=== PATIENT | female | born 1985 | race Caucasian/White ===

== ENCOUNTER → 2020-05-16 | Outpatient (CLI) | payer OTHER ==
--- NOTE | 2020-05-21 08:53 | MR ---
EXAMINATION TYPE: MR liver wo/w con DATE OF EXAM: 05/16/2020 COMPARISON: Outside CT April 23, 2020 HISTORY: Liver lesion, Stomach pain CONTRAST: Standard multiplanar, multisequence MRI departmental protocol utilizing 11 mL intravenous Gadavist ga dolinium contrast. Imaging is performed of the abdomen focusing on the liver. FINDINGS: Liver: Liver size stable and upper limits of normal with prominent right hepatic lobe redemonstrated. No concerning solid or cystic mass clearly identified. Dynamic postcontrast imaging suboptimal as no true dedicated hepatic arterial phase identified. Main portal vein is patent and nondilated. Branchi ng portal veins are patent. Draining hepatic veins into IVC noted. Area of concern 1.5 cm hyperdensit y on arterial phase images posterior right hepatic lobe towards the periphery on CT not clearly seen on delayed phased images and not clearly identified on MRI are consistent with a transient hepatic at tenuation difference. Other: Lung bases are clear. The spleen, pancreas, both adrenal glands are within normal limits. Gall bladder noted surgically absent. No concerning renal mass or hydronephrosis seen bilaterally. No jack l dilatation. Osseous structures are intact. IMPRESSION: As above. No worrisome intrahepatic mass on MRI.
== END | disposition home or self-care (01) ==
LOC: RADMRIMAIN 15:19
PROVIDERS: ATTEND Family Medicine
DX: K76.9 Liver disease, unspecified (principal); Z90.49 Acquired absence of other specified parts of digestive tract
CPT/HCPCS: 74183; A9585

== ENCOUNTER → 2020-06-20 | Outpatient (CLI) | payer OTHER ==
[2020-06-20 20:51] LABS: Gliadin AB IgA, Deaminated NEGATIVE (NEGATIVE); Gliadin AB IgA, Unit 1.4 U/mL; Gliadin AB IgG, Deaminated NEGATIVE (NEGATIVE)
== END | disposition home or self-care (01) ==
LOC: LABWHC1 10:50
PROVIDERS: ATTEND Nurse Practitioner
DX: R19.4 Change in bowel habit (principal)
CPT/HCPCS: 36415; 83516

== ENCOUNTER → 2021-07-10 | Outpatient (CLI) | payer OTHER ==
--- NOTE | 2021-07-10 14:56 | P.HPBAR ---
Bariatric H&P - History & Physicial H&P Date: 07/10/21 History & Physicial: Visit/CC: Patient initial contact: Initial weight: Initial weight in pounds: Height: Initial BMI: Last weight: Current weight: Current weight in pounds: Current BMI: [place] body weight (based on NIH guidelines): Excess body weight loss: The patient is a 35 year-old F who presents for Bariatric Assessment. DATE OF SERVICE: 07/10/2021 REASON FOR CONSULTATION: Initial bariatric evaluation. HISTORY OF PRESENT ILLNESS: Oksana Rae is a 35-year-old female who comes with lifelong morbid obesity. She presents for the first time in consultation. She was 300 pounds and she lost 50 pounds on her own. She then had health issues with her thyroid and blood pressure medications. She is looking into weight loss. She needs 1 year medical supervised weight loss. She has regained her weight from her 50 pound weight loss. She is looking into the sleeve gastrectomy and gastric bypass. She wants drastic weight loss. She reports support as her is a inside sales trainer. At height of 5 feet 3.75 inches, her ideal body weight is 140 pounds. Her highest weight is 300 pounds, body mass index 52.0. She comes in 265 pounds. Her body mass index is 46.0. She is 125 pounds overweight. PAST MEDICAL HISTORY: 1. Morbid obesity due to excess calories 2. Body mass index of 52.0, initial 3. Hypertensive heart disease 4. Hyperlipidemia 5. Osteoarthritis 6. Gastroesophageal reflux disease 7. Depressive disorder 8. Kidney stones. PAST SURGICAL HISTORY: 1. Breast reduction 2. Cholecystectomy 3. Hysterectomy 4. Lithotripsy HOME MEDICATIONS: Home Medications Medication Instructions Recorded Confirmed Atorvastatin [Lipitor] 20 mg PO DAILY 08/30/21 09/26/21 DULoxetine HCL [Cymbalta] 30 mg PO DAILY 08/30/21 09/26/21 Gabapentin [Neurontin] 300 mg PO QID 08/30/21 09/26/21 Hydrochlorothiazide 12.5 mg PO DAILY 08/30/21 09/26/21 [hydroCHLOROthiazide] Loratadine [Claritin] 10 mg PO DAILY 08/30/21 09/26/21 Meloxicam [Mobic] 15 mg PO DAILY 08/30/21 09/26/21 Nortriptyline [Pamelor] 10 mg PO DAILY 08/30/21 09/26/21 Omeprazole [PriLOSEC] 20 mg PO DAILY 08/30/21 09/26/21 amLODIPine [Norvasc] 10 mg PO DAILY 08/30/21 09/26/21 Fluticasone Nasal [place] [Flonase 2 spray EA NOSTRIL DAILY PRN 09/27/21 09/27/21 Nasal [place]] ALLERGIES: Allergies Allergy/AdvReac Type Severity Reaction Status Date / Time Penicillins Allergy Anaphylaxis Verified 09/05/21 12:28 Sulfa (Sulfonamide Allergy Anaphylaxis Verified 09/05/21 12:28 Antibiotics) SOCIAL HISTORY: Denies tobacco use. FAMILY HISTORY: No family history of ulcerative colitis disease or Crohn's disease. Family history of morbid obesity. No lupus in the family. No reports of stomach or esophageal cancer. She reports her grandmother had obesity. REVIEW OF ORGAN SYSTEMS: CONSTITUTIONAL: HEENT: Denies any active troubles with vision or hearing. ENDOCRINE: Denies diabetes. Had thyroid disorder. CARDIOVASCULAR: Denies past reports of palpitations or heart attacks or chest pain. Has hyperlipidemia. RESPIRATORY: No current pneumonia. No shortness of breath. GASTROINTESTINAL: Denies any bright red blood per rectum. No diarrhea. No constipation. Has gastroesophageal reflux disease. GENITOURINARY: Denies bladder urgency. No recent blood in urine MUSCULOSKELETAL: Has lower back pain and joint pain. NEURO: Has neuropathy. No seizure disorders. PSYCH: Has depression. No suicidal ideation. Has anxiety. RHEUMATOLOGIC: No lupus. No rheumatoid arthritis. HEMATOLOGIC: Denies any abnormal bleeding or bruising. Denies past history of DVTs. SKIN: No rash. No skin cancer. PHYSICAL EXAM: VITAL SIGNS: Height 5 foot 3.75 inches, weight 265 pounds. BMI 46.0 Vital Signs Temp 99 F 07/10/21 16:24 Pulse 97 07/10/21 16:24 Resp 16 07/10/21 16:24 BP 124/72 07/10/21 16:24 Pulse Ox GENERAL: Well-developed in no acute distress. HEENT: No scleral icterus. Extraocular movements grossly intact. Hears conversational speech. No nasal drainage. NECK: Supple without lymphadenopathy. CHEST: Nonlabored respirations with equal bilateral excursions. CARDIOVASCULAR: Regular rate and regular rhythm. Distal 2+ pulses. ABDOMEN: Obese, soft, nontender, nondistended. MUSCULOSKELETAL: No clubbing, cyanosis. NEURO: No focal or lateralizing signs. Cranial nerves 2 through 12 grossly within normal limits. PSYCH: Appropriate affect. Alert and oriented to person, place and time. SKIN: Good skin turgor. Well perfused. ASSESSMENT: 1. Morbid obesity due to excess calories 2. Body mass index of 52.0, initial 3. Hypertensive heart disease 4. Hyperlipidemia 5. Osteoarthritis 6. Gastroesophageal reflux disease 7. Depressive disorder 8. Kidney stones. PLAN: 1. Surgical options including a band, gastric bypass, sleeve gastrectomy were described in detail. Alternatives such as gastric balloon including duodenal switch were described. 2. The [place] bariatric surgical collaborative data and outcomes calculator deferred. 3. Recommend a bariatric metabolic panel to evaluate for micro- including macronutrient deficiencies. 4. For history of daytime somnolence, recommend evaluation and treatment for sleep apnea. 5. Dietary surveillance and counseling was reviewed. Increased protein intake over 65 grams daily advised. 6. Will need cardiac risk assessment. 7. Recommend medical risk assessment. 8. Psych assessment per insurance guidelines. 9. Recommend upper endoscopy. 10. Recommend 12-lead EKG. 11. Recommend urine nicotine testing pre-op 12. Recommend urine drug screen Thank you for this consultation. Bariatric Checklist Checklist: Plan: Checklist: EGD: 1. Hiatal hernia: 2. H. Pylori: HgbA1c: Vitamin D: Smoking: Primary care physician referral: Psychiatry clearance: Cardiology clearance: Sleep study: Diet journal: VTE risk score: VTE risk level: Rehab needs at discharge:
[2021-07-10 16:29] VITALS: BP 124/72; PULSE 97; RESP 16; TEMP 99; BMI 46.0
== END ==
LOC: BARWHC3 13:27
PROVIDERS: ATTEND Surgery Plastic and Reconstructive Surgery
DX: E66.01 Morbid (severe) obesity due to excess calories (principal); I11.9 Hypertensive heart disease without heart failure; E78.5 Hyperlipidemia, unspecified; M19.90 Unspecified osteoarthritis, unspecified site; K21.9 Gastro-esophageal reflux disease without esophagitis; F32.A Depression, unspecified; N20.0 Calculus of kidney; Z88.0 Allergy status to penicillin; Z88.2 Allergy status to sulfonamides; Z68.42 Body mass index [BMI] 45.0-49.9, adult
CPT/HCPCS: 99203

== ENCOUNTER → 2021-07-10 | Outpatient (CLI) | payer OTHER ==
[2021-07-10 16:12] LABS: INR 0.9 (<1.2); Partial Thromboplastin Time 21.5 sec (22.0-30.0); Prothrombin Time 9.7 sec (9.0-12.0)
[2021-07-10 19:17] LABS: HCT 39.2 % (37.2-46.3); HGB 12.6 g/dL (12.0-15.0); MCH 28.7 pg (27.0-32.0); MCHC 32.1 g/dL (32.0-37.0); MCV 89.3 fL (80.0-97.0); Mean Platelet Volume 9.3 fL (9.5-12.2); NRBC Per 100 WBC 0 /100 WBCS (0.0-0.0); Platelet Count 389 X 10*3/uL (140-440); RBC 4.39 X 10*6/uL (4.10-5.20); RDW 13.8 % (11.5-14.5); WBC 9.96 X 10*3/uL (4.50-10.00)
[2021-07-10 19:57] LABS: Chol/HDL Ratio 4.31 Ratio; LDL Cholesterol,Calculated 93.7 mg/dL (0.0-131.0); Prealbumin 33.6 mg/dL (18.0-42.0)
[2021-07-10 21:32] LABS: % Iron Saturation 9.96 (12.00-45.00); ALT 19 U/L (8-44); AST 12 U/L (13-35); African American GFR (CKD) 99.1 (60.0-200.0); Albumin 4.3 g/dL (3.8-4.9); Albumin/Globulin Ratio 1.67 (1.60-3.17); Alkaline Phosphatase 50 U/L (41-126); BUN/Creat Ratio 17.32 Ratio (12.00-20.00); Blood Urea Nitrogen 15.1 mg/dL (9.0-27.0); Calcium 9.4 mg/dL (8.7-10.3); Carbon Dioxide 18.5 mmol/L (20.0-27.5); Chloride 103 mmol/L (96-109); Ferritin 50.2 ng/mL (10.0-291.0); Globulin 2.6 g/dL (1.6-3.3); Glucose 100 mg/dL (70-110); Iron 41 ug/dL (50-170); Non-African American GFR(CKD) 85.5 (60.0-200.0); Phosphorus 4.2 mg/dL (2.4-5.1); Sodium 139 mmol/L (135-145); Total Iron Binding Capacity 409 ug/dL (228-460); Total Protein 6.9 g/dL (6.2-8.2)
[2021-07-11 13:05] LABS: Zinc, Serum 59 ug/dL (60-130)
[2021-07-12 09:12] LABS: Vitamin A 88 ug/dL (38-106)
== END | disposition home or self-care (01) ==
LOC: LABWHC1 15:08
PROVIDERS: ATTEND Surgery Plastic and Reconstructive Surgery
DX: E55.9 Vitamin D deficiency, unspecified (principal); E66.01 Morbid (severe) obesity due to excess calories; D50.8 Other iron deficiency anemias; D50.9 Iron deficiency anemia, unspecified; K50.90 Crohn's disease, unspecified, without complications; K91.2 Postsurgical malabsorption, not elsewhere classified; K74.1 Hepatic sclerosis; N19 Unspecified kidney failure; Z71.51 Drug abuse counseling and surveillance of drug abuser
CPT/HCPCS: 84255; 84134; 84425; 80061; 80053; 82607; 82728; 82525; 82746; 83540; 83550; 83735; 84100; 84443; 84590; 84630; 85027; 85610; 85730; 82306; 83970; 83036; 80307; 93005; 36415; G0480; G0482; 80323

== ENCOUNTER → 2021-09-05 | Outpatient (CLI) | payer OTHER ==
[~2021-09-05] MED LIST: CYANOCOBALAMIN 1,000 MCG/ML 1 ML VIAL IM NR
[2021-09-05 12:37] VITALS: BP 129/89; PULSE 111; RESP 15; TEMP 98
== END ==
LOC: PROCWHC3 12:25
PROVIDERS: ATTEND Surgery Plastic and Reconstructive Surgery
DX: D51.9 Vitamin B12 deficiency anemia, unspecified (principal); Z88.0 Allergy status to penicillin; Z88.2 Allergy status to sulfonamides
CPT/HCPCS: 96372; J3420

== ENCOUNTER 2021-10-28 19:14 | Emergency (ER) | payer OTHER ==
[2021-10-28 19:24] VITALS: TEMP 97.9
[2021-10-28 20:06] LABS: Bacteria,Urine Moderate /hpf; Mucus,Urine Rare /hpf; RBC,Urine 5 /hpf (0-5); Squamous Epithelial Cell,Urine 12 /hpf (0-4); WBC,Urine 32 /hpf (0-5)
[2021-10-28 20:16] LABS: Appearance,Urine Cloudy (Clear); Color,Urine Yellow
[2021-10-28 20:17] LABS: PH, Urine 5.5 (5.0-8.0); Protein,Urine Trace (Negative); Specific Gravity,Urine 1.025 (1.001-1.035)
[2021-10-28 20:18] LABS: Bilirubin,Urine Negative (Negative); Blood,Urine Negative (Negative); Glucose,Urine (UA) Negative (Negative); Ketones,Urine 1+ (Negative); Urobilinogen,Urine <2.0 mg/dL (<2.0)
[2021-10-28 20:19] LABS: Leukocyte Esterase,Urine Moderate (Negative); Nitrite,Urine Negative (Negative)
[2021-10-28] MEDS ORDERED: SODIUM CHLORIDE 0.9% 1,000 ML IV ONE (22:10)
[2021-10-28] MEDS ORDERED: MAG HYDROX/AL HYDROX/SIMETH 30 ML, HYOSCYAMINE ELIXIR 10 ML, LIDOCAINE VISCOUS 2% 10 ML PO STA ×3 (22:19)
[2021-10-28] MEDS ORDERED: PANTOPRAZOLE 40 MG/10 ML VIAL IVP STA (22:19)
--- NOTE | 2021-10-28 22:24 | ED ---
Abdominal Pain HPI - General Chief Complaint: Abdominal Pain Stated Complaint: Abd pain Time Seen by Provider: 10/28/21 22:09 Source: patient, RN notes reviewed Mode of arrival: ambulatory Limitations: no limitations - History of Present Illness Initial Comments: This is a pleasant 35-year-old female with a history of gastroesophageal effluxed disease as well as a hiatal hernia. Patient had a recent upper endoscopy confirming hiatal hernia. She comes to the ER today complaining of increased discomfort in her epigastrium related to this. This may going on for quite some time. Patient takes Pepcid but has not proton pump inhibitor according to her. Patient does take meloxicam as well as gabapentin 300 mg 3 times a day. No headache, no fever or chills, no changes in vision or hearing, no sore throat or difficulty with speech, no neck pain, no chest pain or shortness of breath, , no nausea or vomiting, no changes in urination or bowel movements, no numbness or tingling, no extremity pain, no skin rashes or lesions. MD Complaint: abdominal pain - Related Data Home Medications Medication Instructions Recorded Confirmed Atorvastatin [Lipitor] 20 mg PO DAILY 08/30/21 10/28/21 DULoxetine HCL [Cymbalta] 30 mg PO DAILY 08/30/21 10/28/21 Gabapentin [Neurontin] 300 mg PO QID 08/30/21 10/28/21 Hydrochlorothiazide 12.5 mg PO DAILY 08/30/21 10/28/21 [hydroCHLOROthiazide] Meloxicam [Mobic] 15 mg PO DAILY PRN 08/30/21 10/28/21 Nortriptyline [Pamelor] 10 mg PO HS 08/30/21 10/28/21 amLODIPine [Norvasc] 10 mg PO DAILY 08/30/21 10/28/21 Fluticasone Nasal [place] [Flonase 2 spr EA NOSTRIL DAILY PRN 09/27/21 10/28/21 Nasal [place]] Cetirizine HCl [Zyrtec] 10 mg PO DAILY 10/16/21 10/28/21 traMADol HCL 50 mg PO TID PRN 10/28/21 10/28/21 Previous Rx's Medication Instructions Recorded Omeprazole [PriLOSEC] 40 mg PO DAILY #30 cap 10/16/21 Dicyclomine [Bentyl] 20 mg PO QID PRN #24 tablet 10/28/21 Allergies Allergy/AdvReac Type Severity Reaction Status Date / Time Penicillins Allergy Anaphylaxis Verified 10/28/21 23:01 Sulfa (Sulfonamide Allergy Anaphylaxis Verified 10/28/21 23:01 Antibiotics) Review of Systems ROS Statement: Those systems with pertinent positive or pertinent negative responses have been documented in the HPI. ROS Other: All systems not noted in ROS Statement are negative. Past Medical History Past Medical History: GERD/Reflux, Hyperlipidemia, Osteoarthritis (OA) Additional Past Medical History / Comment(s): herniated disc in back, bursitis, carpal tunnel, hiatel hernia History of Any Multi-Drug Resistant Organisms: None Reported Past Surgical History: Breast Surgery, Hysterectomy Additional Past Surgical History / Comment(s): breast reduction, sinus surgery, wisdom teeth surgery Past Psychological History: Depression, PTSD Smoking Status: Never smoker Past Alcohol Use History: Occasional Past Drug Use History: Marijuana General Exam - General Exam Comments Initial Comments: Patient does not appear to be ill or toxic. Appears to be in no significant dis tress. Limitations: no limitations General appearance: alert, in no apparent distress Head exam: Present: atraumatic, normocephalic, normal inspection Eye exam: Present: normal appearance, PERRL, EOMI. Absent: scleral icterus, conjunctival injection, periorbital swelling ENT exam: Present: normal exam, mucous membranes moist Neck exam: Present: normal inspection, full ROM. Absent: tenderness, meningismus, lymphadenopathy Respiratory exam: Present: normal lung sounds bilaterally. Absent: respiratory distress, wheezes, rales, rhonchi, stridor, chest wall tenderness, accessory muscle use, decreased breath sounds Cardiovascular Exam: Present: regular rate, normal rhythm, normal heart sounds. Absent: systolic murmur, diastolic murmur, rubs, gallop, clicks GI/Abdominal exam: Present: soft, tenderness (Tenderness in the epigastric which is rather mild.), normal bowel sounds. Absent: distended, guarding, rebound, rigid, diminished bowel sounds, hyperactive bowel sounds, hypoactive bowel sounds, organomegaly, mass, bruit, pulsatile mass, hernia Extremities exam: Present: normal inspection, full ROM, normal capillary refill. Absent: tenderness, pedal edema, joint swelling, calf tenderness Back exam: Present: normal inspection Neurological exam: Present: alert, oriented X3, CN II-XII intact Psychiatric exam: Present: normal affect, normal mood Skin exam: Present: warm, dry, intact, normal color. Absent: rash Course Vital Signs 10/28/21 19:19 Temperature 97.9 F Pulse Rate 100 Respiratory 20 Rate Blood Pressure 132/81 O2 Sat by Pulse 97 Oximetry - Reevaluation(s) Reevaluation #1: 10/28/21 23:48 Medical record is reviewed Symptoms are improved here in the emergency department Patient is informed of results and questions answered Patient in no distress Repeat examination reveals benign and soft abdomen. Medical Decision Making - Medical Decision Making Order a general abdominal workup. Plain film x-rays. I'm going to give the patient dose of Protonix here and she states she is not on a proton pump inhibitor. However did review the patient's recent medication list. States she is on Prilosec and not Pepcid, I suspect the patient may be mistaken. GI cocktail will be tried as well. Patient is already on tramadol and gabapentin for chronic pain through her neurologist. Patient resting comfortably at discharge. We'll have the patient follow-up with the general surgeon. We'll add on Bentyl but patient's current regimen. Patient is on pain contract with neurology. We'll have her call in the morning. Patient holding down fluids without difficulty. Feels well enough to go home. Treatment plan discussed, all questions answered Patient was told to return to the ER for any signs or symptoms worsen. Told to return immediately if any other problems arise. All questions answered. Treatment plan discussed. Patient in agreement Every effort has been made to ensure accuracy of this dictation. However, due to the limitations of electronic medical records and dictation devices, errors in charting still occur. [employer], Dr. Ibrahim - Lab Data Result diagrams: 10/28/21 22:45 10/28/21 22:45 Lab Results 10/28/21 10/28/21 10/28/21 Range/Units 19:29 22:45 22:45 WBC 8.9 (3.8-10.6) k/uL RBC 4.48 (3.80-5.40) m/uL Hgb 12.5 (11.4-16.0) gm/dL Hct 38.1 (34.0-46.0) % MCV 85.0 (80.0-100.0) fL MCH 28.0 (25.0-35.0) pg MCHC 32.9 (31.0-37.0) g/dL RDW 13.8 (11.5-15.5) % Plt Count 353 (150-450) k/uL MPV 7.4 Neutrophils % 64 % Lymphocytes % 23 % Monocytes % 7 % Eosinophils % 3 % Basophils % 1 % Neutrophils # 5.7 (1.3-7.7) k/uL Lymphocytes # 2.0 (1.0-4.8) k/uL Monocytes # 0.6 (0-1.0) k/uL Eosinophils # 0.3 (0-0.7) k/uL Basophils # 0.1 (0-0.2) k/uL Sodium 137 (137-145) mmol/L Potassium 3.4 L (3.5-5.1) mmol/L Chloride 103 (98-107) mmol/L Carbon Dioxide 24 (22-30) mmol/L Anion Gap 10 mmol/L BUN 14 (7-17) mg/dL Creatinine 0.86 (0.52-1.04) mg/dL Est GFR (CKD-EPI)AfAm >90 (>60 ml/min/1.73 sqM) Est GFR (CKD-EPI)NonAf 88 (>60 ml/min/1.73 sqM) Glucose 105 H (74-99) mg/dL Calcium 9.2 (8.4-10.2) mg/dL Total Bilirubin 0.5 (0.2-1.3) mg/dL AST 25 (14-36) U/L ALT 23 (4-34) U/L Alkaline Phosphatase 58 (38-126) U/L Total Protein 7.0 (6.3-8.2) g/dL Albumin 3.9 (3.5-5.0) g/dL Lipase 88 (23-300) U/L Urine Color Yellow Urine Appearance Cloudy H (Clear) Urine pH 5.5 (5.0-8.0) Ur Specific [place] 1.025 (1.001-1.035) Urine Protein Trace (Negative) Urine Glucose (UA) Negative (Negative) Urine Ketones 1+ (Negative) Urine Blood Negative (Negative) Urine Nitrite Negative (Negative) Urine Bilirubin Negative (Negative) Urine Urobilinogen <2.0 (<2.0) mg/dL Ur Leukocyte Esterase Moderate (Negative) Urine RBC 5 (0-5) /hpf Urine WBC 32 H (0-5) /hpf Ur Squamous Epith Cells 12 H (0-4) /hpf Urine Bacteria Moderate H (None) /hpf Urine Mucus Rare H (None) /hpf Disposition Clinical Impression: Epigastric abdominal pain, Hiatal hernia Disposition: HOME SELF-CARE Condition: Good Instructions (If sedation given, give patient instructions): Hiatal Hernia (ED) Additional Instructions: Contact your pain management physician tomorrow morning as discussed. Contact the surgeon to see if you can move her appointment up. Make sure you tell them that you were in the emergency department. Follow-up with your regular physician as directed. Return to the ER immediately if any symptoms worsen, new symptoms arise, or any other problems develop. Clear liquids for 24 hours. Prescriptions: Dicyclomine [Bentyl] 20 mg PO QID PRN #24 tablet PRN Reason: Pain Is patient prescribed a controlled substance at d/c from ED?: No Referrals: Rachna Guajardo MD [STAFF PHYSICIAN] - 11/01/21 Time of Disposition: 23:49
[2021-10-28 23:09] LABS: Basophils # (A) 0.1 k/uL (0-0.2); Basophils % (A) 1 %; Eosinophils # (A) 0.3 k/uL (0-0.7); Eosinophils % (A) 3 %; HCT 38.1 % (34.0-46.0); HGB 12.5 gm/dL (11.4-16.0); Lymphocytes % (A) 23 %; MCHC 32.9 g/dL (31.0-37.0); Mean Platelet Volume 7.4; Monocytes # (A) 0.6 k/uL (0-1.0); Monocytes % (A) 7 %; Neutrophils # (A) 5.7 k/uL (1.3-7.7); Neutrophils % (A) 64 %; Platelet Count 353 k/uL (150-450); RBC 4.48 m/uL (3.80-5.40); RDW 13.8 % (11.5-15.5); WBC 8.9 k/uL (3.8-10.6)
[2021-10-28 23:23] LABS: ALT 23 U/L (4-34); AST 25 U/L (14-36); African American GFR (CKD) >90 (>60 ml/min/1.73 sqM); Albumin 3.9 g/dL (3.5-5.0); Alkaline Phosphatase 58 U/L (38-126); Anion Gap 10 mmol/L; Blood Urea Nitrogen 14 mg/dL (7-17); Calcium 9.2 mg/dL (8.4-10.2); Carbon Dioxide 24 mmol/L (22-30); Chloride 103 mmol/L (98-107); Glucose 105 mg/dL (74-99); Lipase 88 U/L (23-300); Non-African American GFR(CKD) 88 (>60 ml/min/1.73 sqM); Potassium 3.4 mmol/L (3.5-5.1); Sodium 137 mmol/L (137-145); Total Bilirubin 0.5 mg/dL (0.2-1.3)
--- NOTE | 2021-10-28 23:23 | XR ---
EXAMINATION TYPE: XR abdomen acute w cxr DATE OF EXAM: 10/28/2021 COMPARISON: NONE HISTORY: Abdominal pain TECHNIQUE: 4 views FINDINGS: Heart and mediastinum are normal. Lungs are clear. Diaphragm is normal. Bony thorax appears normal. Bowel gas pattern is normal. There are clips from cholecystectomy. No sign of intestinal obstruction or pneumoperitoneum. Fecal pattern is normal. No evidence of a mass. No pathologic calcifications ove r the kidneys. IMPRESSION: Normal exam. Nonacute abdomen. Normal chest.
[2021-10-29 07:03] VITALS: BP 118/69; PULSE 60; RESP 16
== END 2021-10-28 23:58 | disposition home or self-care (01) ==
LOC: EC 19:14
DX: K44.9 Diaphragmatic hernia without obstruction or gangrene (principal); E78.5 Hyperlipidemia, unspecified; K21.9 Gastro-esophageal reflux disease without esophagitis; Z79.83 Long term (current) use of bisphosphonates; Z88.0 Allergy status to penicillin; Z88.2 Allergy status to sulfonamides
CPT/HCPCS: 80053; 83690; 85025; 81001; 87086; 74022; 99284; 96374; 96361; C9113

== ENCOUNTER 2021-11-11 07:38 | Day surgery (SDC) | payer OTHER ==
[2021-11-08 09:34] VITALS: BMI 46.5
--- NOTE | 2021-11-11 07:27 | P.GSHP ---
History of Present Illness H&P Date: 11/11/21 CHIEF COMPLAINT: Change in bowel habits HISTORY OF PRESENT ILLNESS: The patient is a 35-year-old female who presents for change in bowel habits. Lower endoscopy was offered for further evaluation and management. PAST MEDICAL HISTORY: Please see list. PAST SURGICAL HISTORY: Please see list. MEDICATIONS: Please see list. ALLERGIES: Please see list. SOCIAL HISTORY: No illicit drug use FAMILY HISTORY: No reports of Crohn disease or ulcerative colitis. REVIEW OF ORGAN SYSTEMS: CONSTITUTIONAL: No reports of fevers or chills. PHYSICAL EXAM: VITAL SIGNS: Stable GENERAL: Well-developed pleasant in no acute distress. HEENT: No scleral icterus. Extraocular movements grossly intact. Moist buccal mucosa. NECK: Supple without lymphadenopathy. CHEST: Unlabored respirations. Equal bilateral excursions. CARDIOVASCULAR: Regular rate and rhythm. Distal 2+ pulses. ABDOMEN: Soft, nontender, nondistended. MUSCULOSKELETAL: No clubbing, cyanosis, or edema. ASSESSMENT: 1. Change in bowel habits PLAN: 1. Recommend proceeding with a lower endoscopy Past Medical History Past Medical History: GERD/Reflux, Hyperlipidemia, Osteoarthritis (OA) Additional Past Medical History / Comment(s): herniated disc & buldging disc., bursitis, carpal tunnel right wrist, hiatal hernia, IBS., resides at [facility] home- states I had no place to live. History of Any Multi-Drug Resistant Organisms: None Reported Past Surgical History: Breast Surgery, Hysterectomy Additional Past Surgical History / Comment(s): breast reduction, sinus surgery, wisdom teeth surgery Past Anesthesia/Blood Transfusion Reactions: Postoperative Nausea & Vomiting (PONV) Past Psychological History: Depression, PTSD Smoking Status: Former smoker Past Alcohol Use History: Occasional Additional Past Alcohol Use History / Comment(s): quit smoking cigarettes 2 years ago. Past Drug Use History: Marijuana Additional Drug Use History / Comment(s): current marijuana use - Past Family History Mother Family Medical History: Cancer Additional Family Medical History / Comment(s): melanoma Medications and Allergies Home Medications Medication Instructions Recorded Confirmed Type Atorvastatin [Lipitor] 20 mg PO DAILY 08/30/21 11/08/21 History Gabapentin [Neurontin] 300 mg PO QID 08/30/21 11/08/21 History Meloxicam [Mobic] 15 mg PO DAILY PRN 08/30/21 11/08/21 History Nortriptyline [Pamelor] 10 mg PO HS 08/30/21 11/08/21 History amLODIPine [Norvasc] 10 mg PO DAILY 08/30/21 11/08/21 History Fluticasone Nasal [place] [Flonase 2 spr EA NOSTRIL DAILY PRN 09/27/21 11/08/21 History Nasal [place]] Cetirizine HCl [Zyrtec] 10 mg PO DAILY 10/16/21 11/08/21 History traMADol HCL 50 mg PO TID PRN 10/28/21 11/08/21 History Acetaminophen Tab [Tylenol Tab] 1,000 mg PO DIRECTED PRN 11/08/21 11/08/21 History Amitriptyline HCl [Elavil] 75 mg PO HS 11/08/21 11/08/21 History Bumetanide [BUMEX] 0.5 mg PO BID 11/08/21 11/08/21 History DULoxetine HCL [Cymbalta] 120 mg PO DAILY 11/08/21 11/08/21 History Omeprazole 20 mg PO DAILY 11/08/21 11/08/21 History Spironolactone [Aldactone] 25 mg PO DAILY 11/08/21 11/08/21 History Topiramate [Topamax] 50 mg PO HS 11/08/21 11/08/21 History polyethylene glycoL 3350 [Miralax] 17 gm PO DAILY 11/08/21 11/08/21 History tiZANidine [Zanaflex] 4 mg PO HS 11/08/21 11/08/21 History traZODone HCL 100 mg PO HS 11/08/21 11/08/21 History Allergies Allergy/AdvReac Type Severity Reaction Status Date / Time Penicillins Allergy Anaphylaxis-states Verified 11/08/21 09:10 hives and dyspnea Sulfa (Sulfonamide Allergy Anaphylaxis Verified 10/28/21 23:01 Antibiotics)
[2021-11-11 10:53] VITALS: TEMP 96.5
[2021-11-11] MEDS: LACTATED RINGERS 1,000 ML IV SCH ×2 (11:06→11:28)
[2021-11-11] MEDS ORDERED: LIDOCAINE 1% (10MG/ML) FOR IV START INTRADERMA ONE (11:06)
[2021-11-11] MEDS ORDERED: PROPOFOL 10 MG/ML 20 ML VIAL IV ONE (11:29)
[2021-11-11 11:54] VITALS: RESP 16
[2021-11-11 12:08] VITALS: BP 105/72; PULSE 78
--- NOTE | 2021-11-11 12:08 | P.PCN ---
Date of Procedure: 11/11/21 Description of Procedure: PREOPERATIVE DIAGNOSIS: Change in bowel habits with colitis POSTOPERATIVE DIAGNOSIS: Diverticulosis without diverticulitis OPERATION: Colonoscopy to the cecum, ileocecal valve and appendiceal orifice. Colonoscopy with random biopsies, cold forceps for colitis. SURGEON: Rachna Guajardo MD. ANESTHESIA: MAC. INDICATIONS: The patient is a 35-year-old female who presents with change in bowel habits. Benefits and risks were described and informed consent was obtained. DESCRIPTION OF PROCEDURE: The patient had undergone Sutab prep. The patient had been brought into the operating room and laid in the left lateral decubitus position. After adequate intravenous sedation, the rectum was examined with 2% lidocaine jelly. No external hemorrhoids were encountered. The rectal tone was within normal limits. No lesions were palpated in the rectal vault. An Olympus colonoscope was advanced until the cecum, ileocecal valve and appendiceal orifice were clearly viewed. The prep was good with moderate liquid stool suctioned. Scattered diverticulosis was encountered. No colonic polyps were found. Random biopsies were obtained for colitis. Retroflexion of the scope demonstrated grade 1 internal hemorrhoids without active bleeding or inflammation. The colon was desufflated. The patient had tolerated the procedure well. Withdrawal time was over 6 minutes. FINDINGS: Aronchick preparation quality scale 1+ (1-5) Internal hemorrhoids, grade 1 No external prolapsed hemorrhoids. No arteriovenous malformations. No adenomatous polyps. Random biopsies for colitis Few scattered diverticulosis RECOMMENDATIONS: Lower endoscopy at age 44, 7 years, 2029 Plan - Discharge Summary New Discharge Prescriptions: Continue Atorvastatin [Lipitor] 20 mg PO DAILY Gabapentin [Neurontin] 300 mg PO QID amLODIPine [Norvasc] 10 mg PO DAILY Meloxicam [Mobic] 15 mg PO DAILY PRN PRN Reason: Pain DULoxetine HCL [Cymbalta] 120 mg PO DAILY traZODone HCL 100 mg PO HS Acetaminophen Tab [Tylenol] 1,000 mg PO DIRECTED PRN PRN Reason: Pain Topiramate [Topamax] 50 mg PO HS Bumetanide [BUMEX] 0.5 mg PO BID Nortriptyline [Pamelor] 10 mg PO HS Fluticasone Nasal [place] [Flonase Nasal [place]] 2 spr EA NOSTRIL DAILY PRN PRN Reason: allergies Cetirizine HCl [Zyrtec] 10 mg PO DAILY traMADol HCL 50 mg PO TID PRN PRN Reason: Pain Omeprazole 20 mg PO DAILY polyethylene glycoL 3350 [Miralax] 17 gm PO DAILY Spironolactone [Aldactone] 25 mg PO DAILY Amitriptyline HCl [Elavil] 75 mg PO HS tiZANidine [Zanaflex] 4 mg PO HS Discharge Medication List Atorvastatin [Lipitor] 20 mg PO DAILY 08/30/21 [History] Gabapentin [Neurontin] 300 mg PO QID 08/30/21 [History] Meloxicam [Mobic] 15 mg PO DAILY PRN 08/30/21 [History] Nortriptyline [Pamelor] 10 mg PO HS 08/30/21 [History] amLODIPine [Norvasc] 10 mg PO DAILY 08/30/21 [History] Fluticasone Nasal [place] [Flonase Nasal [place]] 2 spr EA NOSTRIL DAILY PRN 09/27/21 [History] Cetirizine HCl [Zyrtec] 10 mg PO DAILY 10/16/21 [History] traMADol HCL 50 mg PO TID PRN 10/28/21 [History] Acetaminophen Tab [Tylenol] 1,000 mg PO DIRECTED PRN 11/08/21 [History] Amitriptyline HCl [Elavil] 75 mg PO HS 11/08/21 [History] Bumetanide [BUMEX] 0.5 mg PO BID 11/08/21 [History] DULoxetine HCL [Cymbalta] 120 mg PO DAILY 11/08/21 [History] Omeprazole 20 mg PO DAILY 11/08/21 [History] Spironolactone [Aldactone] 25 mg PO DAILY 11/08/21 [History] Topiramate [Topamax] 50 mg PO HS 11/08/21 [History] polyethylene glycoL 3350 [Miralax] 17 gm PO DAILY 11/08/21 [History] tiZANidine [Zanaflex] 4 mg PO HS 11/08/21 [History] traZODone HCL 100 mg PO HS 11/08/21 [History] Follow up [facility]ment(s)/[facility] [place] [facility] - 11/20/21 Patient Instructions/Handouts: *Surgery [facility] - (Anesthesia) Endoscopy Discharge Instructions, Colonoscopy (DC) Activity/Diet/Wound Care/Special Instructions: Repeat colonoscopy at age 44 Discharge Disposition: HOME SELF-CARE
== END 2021-11-11 12:49 | disposition home or self-care (01) ==
LOC: ORWHC2ENDO 07:38
PROVIDERS: ATTEND Surgery Plastic and Reconstructive Surgery
DX: K52.832 Lymphocytic colitis (principal); K57.30 Diverticulosis of large intestine without perforation or abscess without bleeding; K64.0 First degree hemorrhoids; K21.9 Gastro-esophageal reflux disease without esophagitis; E78.5 Hyperlipidemia, unspecified; M19.90 Unspecified osteoarthritis, unspecified site; Z90.710 Acquired absence of both cervix and uterus; F32.A Depression, unspecified; F43.10 Post-traumatic stress disorder, unspecified; Z87.891 Personal history of nicotine dependence; F12.90 Cannabis use, unspecified, uncomplicated; Z80.8 Family history of malignant neoplasm of other organs or systems; Z79.899 Other long term (current) drug therapy; Z88.0 Allergy status to penicillin; Z88.2 Allergy status to sulfonamides
CPT/HCPCS: 88305; 45380; J2704

== ENCOUNTER → 2021-12-20 | Outpatient (CLI) | payer OTHER ==
--- NOTE | 2021-12-22 10:49 | CT ---
EXAMINATION TYPE: CT abdomen w con DATE OF EXAM: 12/20/2021 COMPARISON: 04/23/2020 INDICATION: epigastric pain DLP: 2817.7 mGycm, Automated exposure control for dose reduction was used. CONTRAST: 100ml mL of Isovue 300. Study performed with Oral Contrast TECHNIQUE: Axial images were obtained from above the diaphragm to the pubic rami in the axial plane a t 5 mm thick sections. Reconstructed images are reviewed on the computer in the coronal plane. FINDINGS: Limited CT sections are obtained the lung bases. The lung bases are clear. CT ABDOMEN: Liver: Mild fatty infiltration is within the liver. Spleen: Normal Pancreas: Normal Adrenal glands: The adrenal glands are normal. Gallbladder: Gallbladder surgically absent. Kidneys: No masses are evident. No hydronephrosis is present. No cysts are present. Delayed images were obtained through the kidneys, which remain unremarkable. Aorta: Normal Inferior vena cava: Normal. Loops of bowel within the abdomen distended with oral contrast. Unremarkable. Oral contrast extends t o distal small bowel loops. Colon without contrast otherwise appears unremarkable. Loops of bowel wit hin the pelvis are out of the [id number]. IMPRESSIONS: 1. No suspicious acute changes CT abdomen.
== END | disposition home or self-care (01) ==
LOC: RADCTMAIN 16:45
PROVIDERS: ATTEND Surgery Plastic and Reconstructive Surgery
DX: K57.92 Diverticulitis of intestine, part unspecified, without perforation or abscess without bleeding (principal)
CPT/HCPCS: 74160; Q9967

== ENCOUNTER → 2022-01-01 | Outpatient (CLI) | payer OTHER ==
[2022-01-01 15:31] VITALS: BP 139/94; PULSE 111; TEMP 98.3; BMI 44.6
--- NOTE | 2022-01-01 16:18 | P.BASOAP ---
Subjective Progress Note Date: 01/01/22 She lost 20 pounds. Looking into the gastric bypass. She is ready for surgery. No more bubble guts. Objective - Vital Signs Vital signs: Vital Signs Temp 98.3 F 01/01/22 15:27 Pulse 111 H 01/01/22 15:27 Resp BP 139/94 01/01/22 15:27 Pulse Ox FiO2 Intake & Output 12/31/21 01/01/22 01/01/22 18:59 06:59 18:59 Weight 117.027 kg Assessment/Plan Plan: Date: 01/01/22 Initial Weight: Initial BMI: Current Weight: 117.027 kg Current BMI: 44.6 Type of Surgery: Total Volume in Band: Previous Volume: Volume Removed: Volume Added: Band Size:
== END | disposition home or self-care (01) ==
LOC: BARWHC3 15:11
PROVIDERS: ATTEND Surgery Plastic and Reconstructive Surgery
DX: E66.01 Morbid (severe) obesity due to excess calories (principal); Z68.41 Body mass index [BMI] 40.0-44.9, adult
CPT/HCPCS: 99211

== ENCOUNTER → 2022-01-06 | Outpatient (CLI) | payer OTHER | END | disposition home or self-care (01) | LOC: LABWHC1 10:20 | PROVIDERS: ATTEND Psychiatry & Neurology Neurology | DX: I49.9 Cardiac arrhythmia, unspecified (principal); R94.31 Abnormal electrocardiogram [ECG] [EKG] | CPT/HCPCS: 36415; 93005 ==

== ENCOUNTER → 2022-01-06 | Outpatient (CLI) | payer OTHER ==
[2022-01-06 10:47] VITALS: BMI 46.5
== END ==
LOC: BARWHC3 08:27
PROVIDERS: ATTEND Surgery Plastic and Reconstructive Surgery
DX: Z71.3 Dietary counseling and surveillance (principal); Z88.2 Allergy status to sulfonamides; E66.01 Morbid (severe) obesity due to excess calories; Z68.41 Body mass index [BMI] 40.0-44.9, adult
CPT/HCPCS: 97804